=== PATIENT | male | born 1950 | race Caucasian/White ===

== ENCOUNTER → 2016-06-26 | Outpatient (CLI) | payer OTHER ==
[~2016-06-26] MED LIST: KLONOPIN0.5 M1 PO; NEURONTIN600 MG PO; PROAIR HFA8.5 GM IH; SINEMET 25-2501 EAC1 PO; SINEMET CR 25-1 EACH PO
== END | disposition home or self-care (01) ==
LOC: CDC 10:45
DX: Z01.810 Encounter for preprocedural cardiovascular examination (principal); K40.91 Unilateral inguinal hernia, without obstruction or gangrene, recurrent
CPT/HCPCS: 93000

== ENCOUNTER 2016-07-03 10:59 | Day surgery (SDC) | payer OTHER ==
[~2016-07-03] VITALS: Ht 182.9 cm; Wt 81.1 kg
[2016-07-03 11:17] VITALS: BP 125/65
[2016-07-03 19:50] VITALS: BP 141/84
[2016-07-03 20:03] VITALS: BP 123/79
[2016-07-04] VITALS (7 sets, daily range): BP systolic 122–158; BP diastolic 70–87
[2016-07-04 07:37] LABS: EOSINOPHIL (%) 0.1 % (0-5); HEMATOCRIT 40.9 % (38.0-50.0); IMMATURE GRANULOCYTE (%) 0.3 % (0.0-0.7); MCH 34.6 PG (29.0-34.0); MCV 101.7 FL (86-99); MEAN PLAT.VOLUME 10.1 uM^3 (9.0-12.4); MONOCYTE (%) 12.9 % (3-12); MONOCYTE COUNT 1.4 K/uL (0-0.8); NEUTROPHIL (%) 77.3 % (45-76); NEUTROPHIL COUNT 8.5 K/uL (1.8-6.4); PLATELET COUNT 193 K/uL (156-360); RBC DIS.WIDTH-CV 13.7 % (11.8-14.6); RBC DIS.WIDTH-SD 51.2 % (39-53); RED BLOOD COUNT 4.02 M/uL (4.00-5.50)
[2016-07-04 08:09] LABS: ALKALINE PHOSPHATASE 39 IU/L (3-129); ANION GAP 8 MEQ/L (2-14); CHLORIDE 104 MEQ/L (99-109); GFR ESTIMATE (CALCULATED) > 59 mL/min/; GLUCOSE 113 mg/dL (70-99); MAGNESIUM 2.1 mg/dl (1.3-2.7); POTASSIUM 3.9 MEQ/L (3.7-5.4); SAMPLE HEMOLYSIS CHECK 0; SAMPLE ICTERIC CHECK 0; SAMPLE LIPEMIA CHECK 0; SODIUM 140 MEQ/L (136-147); TOTAL BILIRUBIN 1.1 MG/DL (0.0-1.0); UREA NITROGEN (BUN) 9 mg/dL (9-23)
[2016-07-05 03:53] VITALS: BP 140/80
[2016-07-05 07:52] VITALS: BP 118/69
[2016-07-05] MEDS ORDERED: DILAUDID2 MG PO (09:59)
== END 2016-07-05 10:40 | disposition home or self-care (01) ==
LOC: SDC 10:59 → 2SOUTH 16:45 → 2EAST 16:45 → 2SOUTH 16:45 → 2EAST 19:41
PROVIDERS: Surgery
DX: K40.91 Unilateral inguinal hernia, without obstruction or gangrene, recurrent (principal); G20 Parkinson's disease; M54.2 Cervicalgia; E78.5 Hyperlipidemia, unspecified; M79.7 Fibromyalgia; J45.909 Unspecified asthma, uncomplicated; Z82.49 Family history of ischemic heart disease and other diseases of the circulatory system; Z88.8 Allergy status to other drugs, medicaments and biological substances
CPT/HCPCS: 80053; 83735; 84100; 85025; 88300; C1727; C1781; G0378; J0690; J1100; J1170; J1650; J2250; J2405; J3010